=== PATIENT | female | born 1980 | race African-American/Black ===

== ENCOUNTER 2016-12-03 19:01 | Emergency (ER) | payer MEDICAID, OTHER ==
[~2016-12-03] VITALS: Ht 180.3 cm; Wt 61.0 kg
[~2016-12-03 19:01] MED LIST: RANI150 PO; ZOFR4TAB3 SL
[2016-12-03 19:03] VITALS: BP 137/91; PULSE 73; RESP 15; TEMP 99.9; O2SAT 99
--- NOTE | 2016-12-03 20:11 | PD ---
HPI Chief Complaint: Eye Problems/Injury Time Seen by Provider: 20:06 Travel History International Travel<30 days: No Contact w/Intl Traveler<30days: No Traveled to known affect area: No History of Present Illness HPI 35-year-old black female presents to emergency Department with complaints of bilateral eyelid swelling and pain 3 weeks. She states that she has had multiple styes develop then resolved. She states that it seems to be going from one eye to the other and back and forth. She does not wear glasses or contacts. She has been using some Visine. She states that the lights do bother her eyes. She does have some light discharge. No foreign body sensation. No trauma. No recent illness. Denies any history of eye infections in the past. She states that she is one month and is no longer breast-feeding. Up-to-date with immunizations. 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 Review of Systems Except as stated in HPI: all other systems reviewed are Neg General / Constitutional: No: Fever, Chills Eyes: Positive: Blurred Vision, Photophobia, Drainage, Redness, Pain, No: Diploplia, Foreign Body Sensation, Visual changes HENT: Positive: Headaches, No: Sore Throat Physical Exam Narrative GENERAL: Well-developed, well-nourished in no acute distress. Nontoxic appearing. HEAD: Normocephalic, atraumatic. EYES: Pupils equal round and reactive. Extraocular motions intact. No scleral icterus. Both eyes are mildly injected. Positive thin mucus drainage bilaterally. Patient has small hordeolum's to the lids of both right and left eyes. One drop of Alcaine is instilled in each eye. Fluorescein stain is negative for corneal abrasion or ulceration. No foreign body. ENT: TMs clear without erythema. The external auditory canals clear. Nose: clear . Posterior pharynx is pink and moist. No tonsillar edema or exudate. Uvula midline. Airway patent. NECK: Trachea midline.Supple, nontender, moves head freely. No central bony tenderness or spasm. CARDIOVASCULAR: Regular rate and rhythm without murmurs, gallops, or rubs. RESPIRATORY: Clear to auscultation. Breath sounds equal bilaterally. No wheezes , rales, or rhonchi. GASTROINTESTINAL: Abdomen soft, non-tender, nondistended. No hepato-splenomegaly , or palpable masses. No guarding. EXTREMITIES: No clubbing, cyanosis, or edema. No joint tenderness, effusion, or edema noted. BACK: Nontender without deformity or crepitance. No flank tenderness. Data Data Last Documented VS Vital Signs Date Time Temp Pulse Resp B/P (MAP) Pulse Ox O2 Delivery O2 Flow Rate FiO2 12/03/16 19:03 99.9 73 15 137/91 (106) 99 Room Air Orders Orders Proparacaine 0.5% Opth Soln (Alcaine 0.5 (12/03/16 20:15) MDM Medical Decision Making Medical Screen Exam Complete: Yes Emergency Medical Condition: Yes Medical Record Reviewed: Yes Differential Diagnosis MDM: High Differential diagnoses: Acute conjunctivitis (bacterial, viral, allergic, traumatic), glaucoma, iritis, traumatic globe injury, foreign body, corneal abrasion, corneal ulcer, hordeolum Narrative Course Fluorescein is negative for corneal abrasion or ulceration. Patient's given prescription for Polytrim ophthalmic ointment. This is bilateral hordeolum's Diagnosis Primary Impression: bilateral hordeolums Referrals: Claritza Kearney MD 2 days Patient Instructions: General Instructions Additional Instructions: Rest. Wash eyelashes with baby shampoo 3 times daily. Warm compresses. Polytrim ointment. Followup with an eye doctor in one week. Follow-up with a medical doctor one week. Return to the ER if any problems. Med/Other Pt SpecificInfo: Prescription(s) given Scripts Bacitracin-Polymyxin B Opth Oint (Polycin Opth Oint) 500-10,000 Unit/Gm Oint 1 APPLIC EACH EYE Q6HR for Infection, #3.5 GM 0 Refills apply for 7 to 10 days. Prov: Sanchez Miller MD 12/03/16 Disposition: 01 DISCHARGE HOME Condition: Stable Simon Singleton Dec 03, 2016 20:11
[2016-12-03] MEDS ORDERED: BACIOIN5 EACH EYE (20:13)
[2016-12-03] MEDS ORDERED: PROPARACAINE HCL 0.5% OPHT SOLN 15 ML BTL EACH EYE ONE (20:15)
== END 2016-12-03 20:38 | disposition home or self-care (01) ==
LOC: EDTENT 19:01
DX: H00.016 Hordeolum externum left eye, unspecified eyelid (principal); H00.013 Hordeolum externum right eye, unspecified eyelid
CPT/HCPCS: 99283